=== PATIENT | male | born 1975 | race Caucasian/White ===

== ENCOUNTER 2023-04-01 16:24 | Inpatient (IN) ==
--- NOTE | 2023-04-01 16:55 | Emergency Department Note ---
Impression & Plan Small bowel obstruction ADMIT ED Provider Note HPI: History obtained from patient. The patient is a 48-year-old male who presents emergency department with chief complaint of ongoing abdominal pain, diarrhea. Patient states that he has had the symptoms for about the past week. Patient states he was here on Sunday night, CT imaging at that time showed a nonspecific enteritis and the patient was ultimately discharged home. Patient states that his symptoms have not improved since his discharge, he continues to feel some generalized abdominal pain, states he has had more diarrhea. Patient denies any hematemesis, denies any blood per rectum. On arrival here to the ED the patient is hemodynamically stable, he is in no acute distress on my initial assessment. ROS: - Per HPI Differential Diagnosis: Acute colitis, diverticulitis flare, small bowel obstruction, viral gastroenteritis, acute appendicitis, amongst other potential pathologies. *Outpatient medications and allergy history reviewed. 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: (As interpreted by myself): - An order was placed for continuous cardiac monitoring - Patient was noted to be in sinus rhythm with a rate of 75 EKG: (As interpreted by myself): Rate: 79 Rhythm: Normal sinus rhythm Intervals: Within normal limits ST changes: No ST elevation Time: 1658 Chest x-ray: (As interpreted by myself): Slight elevation of the right hemidiaphragm without otherwise any acute disease Interventions provided in ED: -IV morphine, IV Zofran, IV fluid bolus Medical Decision Making: IV was established and lab work obtained, patient was placed on amusement or recreation card checker. Lab work shows no leukocytosis, hemoglobin is normal, platelet count is normal, CMP shows a mild hyponatremia 135, chloride is low at 95, there is no acute kidney injury, no transaminitis, bilirubin is normal, troponin is negative x 1. Lipase is normal. EKG is interpreted by myself shows normal sinus rhythm without any acute ischemic changes. Chest x-ray shows some mild elevation of the right hemidiaphragm with otherwise no acute disease noted by myself. Stool cultures pending at the time of admission. CT imaging of the abdomen pelvis shows evidence of a high-grade small bowel obstruction in the area of the left abdomen. Patient has not had any vomiting since early this morning, on my reassessment he states he is feeling moderate improvement, therefore we will forego NG tube at this time. General surgery was consulted and the patient was evaluated by the midlevel provider, Miguel Dunlap PA-C, at the bedside, [facility]. Patient was placed for admission in stable condition. Consultants/Discussions held with other healthcare providers: -General Surgery, Miguel Dunlap PA-C -Hospitalist, Dr. Wills Disposition discussion held by myself with: -Patient and significant other at the bedside Diagnosis: 1. Small bowel obstruction, acute 2. Abdominal pain, acute 3. Nausea and vomiting, acute 4. Diarrhea, acute, nonspecific Disposition: Admission Johnnie Cazares DO Emergency Medicine Past Med/Surg History Social History Smoking Status: Never smoker Preferred Language: Greek Feels Safe at Home: Yes Allergies Allergies Allergy/AdvReac Type Severity Reaction Status Date / Time No Known Allergies Allergy Verified 04/01/23 18:29 Home Meds Home Medications Medication Instructions Recorded Confirmed ibuprofen 200 mg tablet 600 mg PO Q6H PRN PAIN/FEVER 04/01/23 04/01/23 Results & Data (ED) Vital Signs Vital Signs - 24 hr 04/01/23 16:25 04/01/23 17:14 04/01/23 18:26 Temperature 36.6 C Temperature Source Temporal Artery Scan Pulse Rate 94 H Pulse Rate [Apical] 78 Pulse Rhythm Pulse Rhythm [Apical] Regular Pulse Strength [Apical] Normal Respiratory Rate 18 12 Respiratory Effort / Characteristics Non-Labored Spontaneous Respiratory Depth Normal Respiratory Pattern Regular Blood Pressure 139/81 Blood Pressure [Right Arm] 147/82 H Blood Pressure Mean 100 Blood Pressure Mean [Right Arm] 103 Blood Pressure Position [Right Arm] Semi-fowlers Pulse Oximetry 95 88 L 95 Oxygen Delivery Method Room Air Nasal Cannula Nasal Cannula Oxygen Flow Rate 0 2 Sepsis Recent Fever Within 48 Hours No Sepsis New/Unexplained Change in Mental Status N/A Sepsis Action Taken by Nursing No Action Required Oxygen Flow Rate - Titration 2 Pulse Oximetry Post Tiitration 95 04/01/23 18:26 04/01/23 18:34 Temperature Temperature Source Pulse Rate 74 70 Pulse Rate [Apical] Pulse Rhythm Regular Pulse Rhythm [Apical] Pulse Strength [Apical] Respiratory Rate 12 Respiratory Effort / Characteristics Respiratory Depth Respiratory Pattern Blood Pressure Blood Pressure [Right Arm] Blood Pressure Mean Blood Pressure Mean [Right Arm] Blood Pressure Position [Right Arm] Pulse Oximetry 95 Oxygen Delivery Method Nasal Cannula Oxygen Flow Rate 2 Sepsis Recent Fever Within 48 Hours Sepsis New/Unexplained Change in Mental Status Sepsis Action Taken by Nursing Oxygen Flow Rate - Titration Pulse Oximetry Post Tiitration Laboratory Data 04/01/23 16:42 04/01/23 16:42 Lab Results 04/01/23 04/01/23 Range/Units 16:42 20:10 WBC 6.97 (4.8-10.8) K/ul RBC 5.04 (4.70-6.10) M/uL Hgb 15.5 (14.0-18.0) g/dl Hct 45.3 (42.0-52.0) % MCV 89.9 (80.0-100.0) fL MCH 30.8 (25.0-34.0) pg MCHC 34.2 (32.0-36.0) g/dL RDW Std Deviation 41.3 (36.4-46.3) fL RDW Coeff of Roberto 12.5 (11.5-14.5) % Plt Count 322 (130-400) K/uL MPV 9.5 (9.4-12.4) fL Immature Gran % (Auto) 0.4 % Neut % (Auto) 53.4 % Lymph % (Auto) 22.1 % [place] % (Auto) 16.8 % Eos % (Auto) 6.3 % Baso % (Auto) 1.0 % Neut # (Auto) 3.72 (1.40-6.50) K/uL Lymph # (Auto) 1.54 (1.20-3.40) K/uL [place] # (Auto) 1.17 H (0.11-0.59) K/uL Eos # (Auto) 0.44 (0.00-0.50) K/uL Baso # (Auto) 0.07 (0.00-0.20) K/uL Immature Gran # (Auto) 0.03 (0.01-0.20) K/uL Dohle Bodies 1+ PT 11.2 (9.0-12.0) Seconds INR 1.0 (0.9-1.1) Sodium 135 L (136-145) mmol/L Potassium 3.8 (3.5-5.1) mmol/L Chloride 95 L (98-107) mmol/L Carbon Dioxide 30 (21-32) mmol/L Anion Gap 10 (3-11) BUN 17 (6-23) mg/dl Creatinine 1.03 (0.6-1.4) mg/dl Est Cr Clr Drug Dosing Not Reportable Est GFR ( Amer) 100.5 ml/min Est GFR (Non-Af Amer) 86.7 ml/min BUN/Creatinine Ratio 16.5 (10-20) Glucose 104 H (70-99(Fasting)) mg/dl Calcium 9.9 (8.6-10.3) mg/dl Total Bilirubin 0.6 (0.2-1.0) mg/dl AST 23 (13-39) U/L ALT 46 (7-52) U/L Alkaline Phosphatase 59 (34-104) U/L Troponin I High Sens 5.8 (0-20) pg/ml Total Protein 7.9 (6.0-8.3) gm/dl Albumin 4.2 (3.4-5.0) gm/dl Globulin 3.7 (2.5-4.0) gm/dl Albumin/Globulin Ratio 1.1 (0.9-2) Lipase 42 (11-82) U/L Stl C. diff Tox B Gene Negative Cdiff Gene (Neg) Administered Medications Discontinued Medications Sodium Chloride (Nss) 1,000 mls @ 999 mls/hr IV .Q1H1M ONE Stop: 04/01/23 17:53 Last Infusion: 04/01/23 18:20 Dose: Infused Documented By: Admin: 04/01/23 16:58 Dose: 999 mls/hr Documented By: EZRA Ioversol (Optiray 320 500ml) 86 ml IV ONCE ONE Stop: 04/01/23 18:18 Last Admin: 04/01/23 18:18 Dose: 86 ml Documented By: ZOHAIB Morphine Sulfate (Morphine Sulfate 4 Mg/Ml 1 Ml Carp\Vial) 4 mg IV NOW STA Stop: 04/01/23 16:54 Last Admin: 04/01/23 17:00 Dose: 4 mg Documented By: EZRA Ondansetron HCl (Ondansetron Inj 2 Mg/Ml 2 Ml Vial) 4 mg IV NOW STA Stop: 04/01/23 16:54 Last Admin: 04/01/23 16:59 Dose: 4 mg Documented By: EZRA Imaging Data Radiologist's Impression: Abdomen/Pelvis CT 04/01/23 16:[address] WITH IV CONTRAST CT DOSE: 1556.05 mGy.cm HISTORY: Acute generalized abdominal pain with nausea and vomiting worsening abd pain, n/v, distension TECHNIQUE: Multiaxial CT images of the abdomen and pelvis were performed following the IV administration of 86 cc of Optiray, A dose lowering technique was utilized adhering to the principles of ALARA. COMPARISON STUDY: 03/29/2023 FINDINGS: Right hemidiaphragmatic elevation redemonstrated. Subsegmental bibasilar densities suggest atelectasis. No pneumatosis or pneumoperitoneum identified. Unremarkable spleen, adrenal glands. Mildly distended gallbladder. The pancreas is unremarkable. Borderline dilation of the pancreatic duct measuring 3-4 mm is unchanged. Unremarkable liver. Patency of the hepatic and portal veins. Unremarkable kidneys. No hydronephrosis. Partially decompressed bladder with wall thickening. Prostate is mildly enlarged. Unremarkable abdominal aorta and IVC. No lymphadenopathy. Trace ascites. Numerous dilated air and fluid-filled loops of small bowel redemonstrated measuring up to approximately 5.6 cm. Several loops of small bowel demonstrates circumferential wall thickening. There is transition narrowing involving a loop of small bowel within the left midabdomen on image 29 series 3 which is generally decompressed distally extending to the terminal ileum. There is mild swirling of the mesentery. Mild interloop edema. Normal appendix. No acute fracture. Tiny fat filled umbilical hernia. IMPRESSION: 1. High-grade small bowel obstruction with transition point within the left abdomen. Several loops of small bowel demonstrate wall thickening with moderate interloop edema and trace ascites. 2. No pneumoperitoneum. 3. Normal appendix. ACT 112: Negative or not required by law. The above report was generated using voice recognition software. It may contain grammatical, syntax or spelling errors. Electronically signed by: Ck Lutz M.D. 04/01/2023 6:52 PM Discharge Plan Visit Data Chief Complaint: Abdominal Pain Stated Complaint: ABDOMINAL PAIN, VOMITING ED Provider: Johnnie Cazares Discharge Problem: Small bowel obstruction Forms Stand Alone Forms: [facility] Prescriptions Prescriptions: No Action ibuprofen 200 mg Tablet 600 mg PO Q6H PRN (Reason: PAIN/FEVER) Referrals Referrals: Armando Sims MD [Primary Care Provider] -
[2023-04-01 16:56] LABS: Hematocrit (blood only) 45.3 % (42.0-52.0); Hemoglobin 15.5 g/dl (14.0-18.0); Mean Corpuscular Hemoglobin 30.8 pg (25.0-34.0); Mean Corpuscular Hgb Conc 34.2 g/dL (32.0-36.0); Mean Corpuscular Volume 89.9 fL (80.0-100.0); Mean Platelet Volume 9.5 fL (9.4-12.4); Platelet Count 322 K/uL (130-400); RDW Coefficient of Variation 12.5 % (11.5-14.5); RDW Standard Deviation 41.3 fL (36.4-46.3); Red Blood Count 5.04 M/uL (4.70-6.10); White Blood Count 6.97 K/ul (4.8-10.8)
[2023-04-01] MEDS: SODIUM CHLORIDE 0.9% 1,000 ML IV ONE (16:58)
[2023-04-01] MEDS: ONDANSETRON INJ 2 MG/ML 2 ML VIAL IV STA (16:59)
[2023-04-01] MEDS: MoRPHine SULFATE 4 MG/ML 1 ML CARP\\VIAL IV STA (17:00)
[2023-04-01 17:10] LABS: Alanine Aminotransferase 46 U/L (7-52); Albumin Globulin Ratio 1.1 (0.9-2); Albumin Level 4.2 gm/dl (3.4-5.0); Alkaline Phosphatase 59 U/L (34-104); Anion Gap 10 (3-11); Aspartate Aminotransferase 23 U/L (13-39); BUN Creatinine Ratio 16.5 (10-20); Bilirubin,Total 0.6 mg/dl (0.2-1.0); Blood Urea Nitrogen 17 mg/dl (6-23); Calcium 9.9 mg/dl (8.6-10.3); Carbon Dioxide 30 mmol/L (21-32); Chloride 95 mmol/L (98-107); Est GFR (African American) 100.5 ml/min; Est GFR (Non-African American) 86.7 ml/min; Globulin 3.7 gm/dl (2.5-4.0); Glucose 104 mg/dl (70-99(Fasting)); Lipase 42 U/L (11-82); Potassium 3.8 mmol/L (3.5-5.1); Sodium 135 mmol/L (136-145); Total Protein 7.9 gm/dl (6.0-8.3)
[2023-04-01 17:17] LABS: Troponin I High Sensitivity 5.8 pg/ml (0-20)
[2023-04-01 17:25] LABS: Basophils # (auto) 0.07 K/uL (0.00-0.20); Dohle Bodies 1+; Eosinophils # (auto) 0.44 K/uL (0.00-0.50); Eosinophils % (auto) 6.3 %; Immature Granulocytes # (auto) 0.03 K/uL (0.01-0.20); Immature Granulocytes % (auto) 0.4 %; Lymphocytes # (auto) 1.54 K/uL (1.20-3.40); Lymphocytes % (auto) 22.1 %; Monocytes # (auto) 1.17 K/uL (0.11-0.59); Monocytes % (auto) 16.8 %; Neutrophils # (auto) 3.72 K/uL (1.40-6.50); Neutrophils % (auto) 53.4 %; Prothrombin Time 11.2 Seconds (9.0-12.0)
[2023-04-01] MEDS: OPTIRAY 320 500ml IV ONE (18:18)
--- NOTE | 2023-04-01 18:54 | CT Scan Report ---
ABDOMEN AND PELVIS CT WITH IV CONTRAST CT DOSE: 1556.05 mGy.cm HISTORY: Acute generalized abdominal pain with nausea and vomiting worsening abd pain, n/v, distensi on TECHNIQUE: Multiaxial CT images of the abdomen and pelvis were performed following the IV administrat ion of 86 cc of Optiray, A dose lowering technique was utilized adhering to the principles of ALARA. COMPARISON STUDY: 03/29/2023 FINDINGS: Right hemidiaphragmatic elevation redemonstrated. Subsegmental bibasilar densities suggest atelectasis. No pneumatosis or pneumoperitoneum identified. Unremarkable spleen, adrenal glands. Mild ly distended gallbladder. The pancreas is unremarkable. Borderline dilation of the pancreatic duct me asuring 3-4 mm is unchanged. Unremarkable liver. Patency of the hepatic and portal veins. Unremarkable kidneys. No hydronephrosis. Partially decompressed bladder with wall thickening. Prostat e is mildly enlarged. Unremarkable abdominal aorta and IVC. No lymphadenopathy. Trace ascites. Numerous dilated air and fluid-filled loops of small bowel redemonstrated measuring up to approximately 5.6 cm. Several loops of small bowel demonstrates circumferential wall thickening. There is transition narrowing involving a loop of small bowel within the left midabdomen on image 29 series 3 which is generally decompressed distally extending to the terminal ileum. There is mild swir ling of the mesentery. Mild interloop edema. Normal appendix. No acute fracture. Tiny fat filled umbi lical hernia. IMPRESSION: 1. High-grade small bowel obstruction with transition point within the left abdomen. Several loops of small bowel demonstrate wall thickening with moderate interloop edema and trace ascites. 2. No pneumoperitoneum. 3. Normal appendix. ACT 112: Negative or not required by law. The above report was generated using voice recognition software. It may contain grammatical, syntax o r spelling errors. Electronically signed by: Ck Lutz M.D. 04/01/2023 6:52 PM
--- NOTE | 2023-04-01 20:56 | Surgery Consultation ---
Date of Consultation April 01, 2023 Assessment & Plan (1) Small bowel obstruction: I discussed with the treating emergency room physician and the patient is being admitted on the hospitalist service. We recommend proceeding as follows: Provide analgesics Provide antiemetics Provide IV fluid for hydration Follow serial labs Follow further results of patient's stool studies and treat accordingly Implement n.p.o. status. I discussed with the patient that as his symptomatology improves consideration be given to advancing his diet beginning with clear liquids. I did discuss with the patient the modality of an NG tube. He does note that his abdominal distention has improved somewhat since arrival to the emergency department and he has not had any emesis in nearly 12 hours and therefore we have elected to withhold this modality at the present time. I did discuss with the patient that if he does have any worsening of his abdominal exam or further emesis the utilization of an NG tube will need to be reconsidered I did discuss with the patient that the cause of his small bowel obstruction is uncertain but may be related to an underlying enteritis, potentially from poorly cooked or mishandled poultry. I did discuss with the patient the rationale for attempting a conservative treatment plan as noted above and additional recommendations be forthcoming based on his clinical course as it unfolds. At the present time I do not feel the patient requires an urgent operation as he is normotensive without tachycardia, fever, leukocytosis, or acute kidney injury. Supervising Physician Co-Signing Physician Notes pnt d/w Eligio Dunlap, labs and imaging reviewed, agree w/ above. 48 y/o male w/ abd pain, n/v/d. ct with dilated bowel and thickened bowel wall. Read as high grade sbo, however on scan air in colon and appears more c/w enteritis. History of Present Illness Reason for Consultation: Small bowel obstruction History of Present Illness This is a 48-year-old male who presented to the emergency department secondary to 7 days of nausea and vomiting along with diarrhea and generalized abdominal pain. Patient notes that when his symptoms began he had some generalized abdominal pain without radiation. As noted above he has had nausea and vomiting along with diarrhea. He notes that his symptoms do improve somewhat after having emesis but this is only short-lived. He denies any bright blood per rectum or melanotic stools. He denies any hematemesis. He denies any fevers, shakes, or chills. He has never had any abdominal surgeries in the past. He does report that prior to his symptoms beginning he may have eaten some poorly cooked/poorly handled chicken and this may have been the culprit of his symptomatology. He notes no close contacts are sick but nobody else ate the chicken in question. The patient does note that since presentation to the emergency department today his abdominal distention appears to be somewhat decreased. He also notes that he has not had any emesis in approximately 12 hours. It is noteworthy to mention that the patient did present to the emergency department on 03/28/2023, approximately 2 to 3 days after the initial onset of his symptoms. During this visit the patient did undergo a CT scan of the abdomen and pelvis which demonstrated thickening of nearly the entirety of the patient's small bowel without any evidence of a small bowel obstruction. It was felt that patient likely had a nonspecific enteritis at that time. Patient also had laboratories at that time her white blood cell count was elevated at 12.8. His hemoglobin, hematocrit, and platelet count were normal. Patient's chemistry profile at that time showed a sodium of 134 with a normal potassium along with a normal BUN and creatinine. His LFTs were not elevated at that time. His lipase was normal at that time. He also underwent a urinalysis that was not indicative of infection at that time. The patient was discharged from the emergency department at this time with conservative measures in place. Due to the ongoing nature of the patient's symptoms he return to the emergency department. Since arrival to the emergency department today the patient had labs and imaging which I independent reviewed. A chest x-ray did not show any evidence of pneumonia. A CT scan of the abdomen pelvis was performed that showed a high- grade small bowel obstruction with a transition point in the left abdomen. Several loops of the small bowel did demonstrate wall thickening. There is no pneumoperitoneum or evidence of appendicitis. Labs today include a CBC her white blood cell count, hemoglobin, hematocrit, and platelet count were normal. Chemistry profile showed sodium was 135 with a normal potassium. BUN and creatinine are also normal and there is no elevation of his LFTs or lipase. Patient has had stool studies sent which are all pending at this time. At the time of my interview the patient was resting comfortably in bed he was in no distress. Concerning past medical history he denies any medical problems Concerning past surgical history he is only had a left biceps tendon repair He does not report any allergies Concerning medications he only utilizes [id number] Motrin on an as needed basis Concerning social history he does not smoke or vape. He only uses alcohol socially and does not consume alcohol on a daily basis Concerning family history patient's mother did suffer from bladder cancer Allergies Allergy/AdvReac Type Severity Reaction Status Date / Time No Known Allergies Allergy Verified 04/01/23 18:29 Home Medications Medication Instructions Recorded Confirmed Type ibuprofen 200 mg tablet 600 mg PO Q6H PRN PAIN/FEVER 04/01/23 04/01/23 History Patient History Social History Smoking Status: Never smoker Hx Substance Use: No Preferred Language: Ukrainian Communication Ability: Effective Six Color Press Operator Required: No Beliefs That Will Affect Care: None Current Living Situation: Alone Other Information That Helps Us Care for You: No Feels Safe at Home: Yes Safety Concerns: Feels Safe At This Time Assistive Devices: None Review of Systems Constitutional: no fever and no chills Ear, Nose, Mouth, Throat: no hearing loss Respiratory: no cough and no dyspnea Cardiovascular: no chest pain Gastrointestinal: as per Subjective / HPI Genitourinary: no dysuria Musculoskeletal: no back pain Integumentary: no rash Neurologic: no localized weakness Physical Exam Constitutional: WD/WN, vitals as above Eyes: no conjunctival abnormality ENMT: Ears: no hearing impairment and no external ear abnormality Mouth: no oropharynx abnormality Neck: trachea midline Respiratory: normal respiratory effort, lungs clear to auscultation Cardiovascular: Rate/Rhythm: regular rate and regular rhythm Vessels: dorsalis pedis pulses present and radial pulses present Gastrointestinal (Abdomen): Abdomen has positive bowel sounds. There is mild to moderate distention noted of the abdomen but his abdomen is not rigid. He does have some generalized tenderness with palpation greatest just to the right of the umbilicus. There is no rebound tenderness or guarding. I do not appreciate any hernias on physical exam. Musculoskeletal: No calf tenderness Skin: no rashes Neurologic: moves all extremities Psychiatric: A+Ox3, euthymic affect Results & Data Vital Signs (Past 12 Hours) Vital Signs Temp Pulse Pulse Resp BP BP Pulse Ox 04/01/23 18:34 70 04/01/23 18:26 74 12 95 04/01/23 18:26 78 12 147/82 H 95 04/01/23 17:14 88 L 04/01/23 16:25 36.6 C 94 H 18 139/81 95 O2 Del Method O2 Flow Rate 04/01/23 18:34 04/01/23 18:26 Nasal Cannula 2 04/01/23 18:26 Nasal Cannula 2 04/01/23 17:14 Nasal Cannula 0 04/01/23 16:25 Room Air PG Care Time/CCT Total # of Minutes Spent Total Time Spent with Patient: Total time spent is greater than 50% in coordination of care (as documented) at patient's floor/unit and/or counseling patient: Coding Level of Care Code 89021 IN/OBS CONSULT LVL 5,80M Diagnoses Small bowel obstruction K56.609
[2023-04-01 21:43] LABS: Adenovirus F 40/41 PCR Not Detected (NotDetected); Astrovirus PCR Not Detected (NotDetected); Campylobacter PCR Not Detected (NotDetected); Cryptosporidium PCR Not Detected (NotDetected); Cyclospora cayetanensis PCR Not Detected (NotDetected); Entamoeba histolytica PCR Not Detected (NotDetected); Enteroaggregative E.coli(EAEC) Not Detected (NotDetected); Enteropathogenic E.coli (EPEC) Not Detected (NotDetected); Enterotoxigenic E.coli (ETEC) Not Detected (NotDetected); Giardia lamblia PCR Not Detected (NotDetected); Norovirus GI/GII PCR Not Detected (NotDetected); Plesiomonas shigelloides PCR Not Detected (NotDetected); Rotavirus A PCR Not Detected (NotDetected); Salmonella PCR Not Detected (NotDetected); Sapovirus PCR Not Detected (NotDetected); Shiga-like Toxin E.coli (STEC) Not Detected (NotDetected); Shigella/Enteroinvasive E.coli Not Detected (NotDetected); Vibrio cholerae PCR Not Detected (NotDetected); Vibrio species PCR Not Detected (NotDetected); Yersinia enterocolitica PCR Not Detected (NotDetected)
[2023-04-01] MEDS ORDERED: MoRPHine SULFATE 4 MG/ML 1 ML CARP\\VIAL IV PRN (22:38)
[2023-04-01 22:59] LABS: Magnesium 2.1 mg/dl (1.7-2.4); Phosphorus 3.5 mg/dl (2.5-4.9)
[2023-04-01] MEDS: LACTATED RINGER'S 1,000 ML IV SCH (23:57)
--- NOTE | 2023-04-02 01:17 | History & Physical Report ---
Date of Service April 01, 2023 Assessment & Plan (1) Small bowel obstruction: Plan: 48yo male with no significant past medical history, no abdominal surgeries presenting with 7 days of nausea, vomiting, diarrhea. Now with worsening abdominal pain and distention. Found to have high grade SBO -Admit to medical -Keep NPO -Pain control with morphine PRN -Zofran PRN nausea -IVF with LR at 125mL/hr x 2 liters -General Surgery consultation appreciated -Repeat chemistry in AM F/E/N - LR at 125mL/hr x 2L, electrolytes WNL, NPO for now Ppx - Low risk for DVT Code - Full Dispo - Admit to medical Admission and Anticipated Discharge Date Admission Date: April 01, 2023 History of Present Illness Chief Complaint: abdominal pain Primary Care Provider: Armando Sims MD Jaime Brink is a 48yo male with no significant past medical or surgical history presenting with abdominal pain, nausea/vomiting and diarrhea. Patient's symptoms began 7 days ago possibly after he ate some improperly stored chicken. He has had diffuse, generalized abdominal pain, nausea with multiple episodes of non-bloody/non-bilious vomiting as well as non-bloody diarrhea. He has had worsening abdominal pain and distention. He has had some chills but no documented fever. No chest pain, palpitations, cough or shortness of breath. No additional complaints at this time. In the ER he is afebrile, HD stable, NAD ER Course: NSS x 1L Zofran 4mg IV Morphine 4mg IV Allergies Allergy/AdvReac Type Severity Reaction Status Date / Time No Known Allergies Allergy Verified 04/01/23 18:29 Home Medications Medication Instructions Recorded Confirmed Type ibuprofen 200 mg tablet 600 mg PO Q6H PRN PAIN/FEVER 04/01/23 04/01/23 History Past Med/Surg History Medical History (Updated 04/02/23 @ 01:10 by Chante Wills DO) No significant past medical history Surgical History (Updated 04/02/23 @ 01:11 by Chante Wills DO) No significant past surgical history Family History (Updated 04/02/23 @ 01:10 by Chante Wills DO) Other Cancer Social History Smoking Status: Never smoker Hx Substance Use: No Preferred Language: Bangladeshi Communication Ability: Effective Fly Winder Required: No Beliefs That Will Affect Care: None Current Living Situation: Alone Other Information That Helps Us Care for You: No Feels Safe at Home: Yes Safety Concerns: Feels Safe At This Time Assistive Devices: None Review of Systems Review of Systems: All systems reviewed & are unremarkable except as noted in HPI & below Physical Exam Physical Exam: General: patient resting comfortably, NAD, non-toxic in appearance, AA&O x 4 Skin: warm, dry, intact, no rashes or lesions HEENT: NC/AT, PERRL, EOMI, anicteric sclera, conjunctiva without injection, external ear normal to inspection and nontender, nares patent, moist mucus membranes, dentition intact, no oropharyngeal lesions, neck supple, trachea midline, no LAD, no thyromegaly, no JVD Heart: +S1/S2, regular, no m/r/g Lungs: equal air entry bilaterally, no rales/rhonchi/wheezes Abd: +BS, soft, moderately distended, tender to palpation in the mid abdomen w ithout rebound or guarding, no masses/organomegaly/ascites Ext: warm, 2+ pulses in UE/LE bilaterally, no clubbing/cyanosis or edema Neuro: nonfocal, patient AA&O x 4, speech intact, no facial droop, moving all extremities on command with equal strength 5/5 Results & Data Results & Data Vital Signs (Past 12 Hours) Vital Signs Temp Pulse Pulse Pulse Resp BP BP 04/01/23 22:43 36.5 C 69 18 137/75 04/01/23 22:41 36.5 C 69 18 137/75 04/01/23 18:34 70 04/01/23 18:26 74 12 04/01/23 18:26 78 12 147/82 H 04/01/23 17:14 04/01/23 16:25 36.6 C 94 H 18 139/81 Pulse Ox O2 Del Method O2 Flow Rate 04/01/23 22:43 93 Room Air 04/01/23 22:41 93 Room Air 04/01/23 18:34 04/01/23 18:26 95 Nasal Cannula 2 04/01/23 18:26 95 Nasal Cannula 2 04/01/23 17:14 88 L Nasal Cannula 0 04/01/23 16:25 95 Room Air Laboratory Results Laboratory Results WBC 6.97 K/ul (4.8-10.8) 04/01/23 16:42 RBC 5.04 M/uL (4.70-6.10) 04/01/23 16:42 Hgb 15.5 g/dl (14.0-18.0) 04/01/23 16:42 Hct 45.3 % (42.0-52.0) 04/01/23 16:42 MCV 89.9 fL (80.0-100.0) 04/01/23 16:42 MCH 30.8 pg (25.0-34.0) 04/01/23 16:42 MCHC 34.2 g/dL (32.0-36.0) 04/01/23 16:42 RDW Std Deviation 41.3 fL (36.4-46.3) 04/01/23 16:42 RDW Coeff of Roberto 12.5 % (11.5-14.5) 04/01/23 16:42 Plt Count 322 K/uL (130-400) 04/01/23 16:42 MPV 9.5 fL (9.4-12.4) 04/01/23 16:42 Immature Gran % (Auto) 0.4 % 04/01/23 16:42 Neut % (Auto) 53.4 % 04/01/23 16:42 Lymph % (Auto) 22.1 % 04/01/23 16:42 [place] % (Auto) 16.8 % 04/01/23 16:42 Eos % (Auto) 6.3 % 04/01/23 16:42 Baso % (Auto) 1.0 % 04/01/23 16:42 Neut # (Auto) 3.72 K/uL (1.40-6.50) 04/01/23 16:42 Lymph # (Auto) 1.54 K/uL (1.20-3.40) 04/01/23 16:42 [place] # (Auto) 1.17 K/uL (0.11-0.59) H 04/01/23 16:42 Eos # (Auto) 0.44 K/uL (0.00-0.50) 04/01/23 16:42 Baso # (Auto) 0.07 K/uL (0.00-0.20) 04/01/23 16:42 Immature Gran # (Auto) 0.03 K/uL (0.01-0.20) 04/01/23 16:42 Dohle Bodies 1+ 04/01/23 16:42 PT 11.2 Seconds (9.0-12.0) 04/01/23 16:42 INR 1.0 (0.9-1.1) 04/01/23 16:42 Sodium 135 mmol/L (136-145) L 04/01/23 16:42 Potassium 3.8 mmol/L (3.5-5.1) 04/01/23 16:42 Chloride 95 mmol/L (98-107) L 04/01/23 16:42 Carbon Dioxide 30 mmol/L (21-32) 04/01/23 16:42 Anion Gap 10 (3-11) 04/01/23 16:42 BUN 17 mg/dl (6-23) 04/01/23 16:42 Creatinine 1.03 mg/dl (0.6-1.4) 04/01/23 16:42 Est Cr Clr Drug Dosing Not Reportable 04/01/23 16:42 Est GFR ( Amer) 100.5 ml/min 04/01/23 16:42 Est GFR (Non-Af Amer) 86.7 ml/min 04/01/23 16:42 BUN/Creatinine Ratio 16.5 (10-20) 04/01/23 16:42 Glucose 104 mg/dl (70-99(Fasting)) H 04/01/23 16:42 Calcium 9.9 mg/dl (8.6-10.3) 04/01/23 16:42 Phosphorus 3.5 mg/dl (2.5-4.9) 04/01/23 16:42 Magnesium 2.1 mg/dl (1.7-2.4) 04/01/23 16:42 Total Bilirubin 0.6 mg/dl (0.2-1.0) 04/01/23 16:42 AST 23 U/L (13-39) 04/01/23 16:42 ALT 46 U/L (7-52) 04/01/23 16:42 Alkaline Phosphatase 59 U/L (34-104) 04/01/23 16:42 Troponin I High Sens 5.8 pg/ml (0-20) 04/01/23 16:42 Total Protein 7.9 gm/dl (6.0-8.3) 04/01/23 16:42 Albumin 4.2 gm/dl (3.4-5.0) 04/01/23 16:42 Globulin 3.7 gm/dl (2.5-4.0) 04/01/23 16:42 Albumin/Globulin Ratio 1.1 (0.9-2) 04/01/23 16:42 Lipase 42 U/L (11-82) 04/01/23 16:42 Stl C. cayetanensis PCR Not Detected (NotDetected) 04/01/23 20:10 Stool Rotavirus A PCR Not Detected (NotDetected) 04/01/23 20:10 Stl Adenov F 40/41 PCR Not Detected (NotDetected) 04/01/23 20:10 Stool Astrovirus (PCR) Not Detected (NotDetected) 04/01/23 20:10 Stool Campylobacter PCR Not Detected (NotDetected) 04/01/23 20:10 Stl C. diff Tox B Gene Negative Cdiff Gene (Neg) 04/01/23 20:10 Stool Cryptosporidium PCR Not Detected (NotDetected) 04/01/23 20:10 Stl E.coli Shiga Tox PCR Not Detected (NotDetected) 04/01/23 20:10 Stl Enterotoxigenic E PCR Not Detected (NotDetected) 04/01/23 20:10 Stool EPEC (PCR) Not Detected (NotDetected) 04/01/23 20:10 Stool EAEC (PCR) Not Detected (NotDetected) 04/01/23 20:10 Stl E. histolytica PCR Not Detected (NotDetected) 04/01/23 20:10 Stool Giardia Lamblia PCR Not Detected (NotDetected) 04/01/23 20:10 Stool Salmonella PCR Not Detected (NotDetected) 04/01/23 20:10 Stool Sapovirus (PCR) Not Detected (NotDetected) 04/01/23 20:10 Stl P. shigelloides PCR Not Detected (NotDetected) 04/01/23 20:10 Stl Shigella/EIEC PCR Not Detected (NotDetected) 04/01/23 20:10 St Y.enterocolitica PCR Not Detected (NotDetected) 04/01/23 20:10 Stool Vibrio (PCR) Not Detected (NotDetected) 04/01/23 20:10 Stl Vibrio cholerae PCR Not Detected (NotDetected) 04/01/23 20:10 Stl Norovirus GI/GII PCR Not Detected (NotDetected) 04/01/23 20:10 Impressions Abdomen/Pelvis CT 04/01/23 16:[address] WITH IV CONTRAST CT DOSE: 1556.05 mGy.cm HISTORY: Acute generalized abdominal pain with nausea and vomiting worsening abd pain, n/v, distension TECHNIQUE: Multiaxial CT images of the abdomen and pelvis were performed following the IV administration of 86 cc of Optiray, A dose lowering technique was utilized adhering to the principles of ALARA. COMPARISON STUDY: 03/29/2023 FINDINGS: Right hemidiaphragmatic elevation redemonstrated. Subsegmental bibasilar densities suggest atelectasis. No pneumatosis or pneumoperitoneum identified. Unremarkable spleen, adrenal glands. Mildly distended gallbladder. The pancreas is unremarkable. Borderline dilation of the pancreatic duct measuring 3-4 mm is unchanged. Unremarkable liver. Patency of the hepatic and portal veins. Unremarkable kidneys. No hydronephrosis. Partially decompressed bladder with wall thickening. Prostate is mildly enlarged. Unremarkable abdominal aorta and IVC. No lymphadenopathy. Trace ascites. Numerous dilated air and fluid-filled loops of small bowel redemonstrated measuring up to approximately 5.6 cm. Several loops of small bowel demonstrates circumferential wall thickening. There is transition narrowing involving a loop of small bowel within the left midabdomen on image 29 series 3 which is generally decompressed distally extending to the terminal ileum. There is mild swirling of the mesentery. Mild interloop edema. Normal appendix. No acute fracture. Tiny fat filled umbilical hernia. IMPRESSION: 1. High-grade small bowel obstruction with transition point within the left abdomen. Several loops of small bowel demonstrate wall thickening with moderate interloop edema and trace ascites. 2. No pneumoperitoneum. 3. Normal appendix. ACT 112: Negative or not required by law. The above report was generated using voice recognition software. It may contain grammatical, syntax or spelling errors. Electronically signed by: Ck Lutz M.D. 04/01/2023 6:52 PM Diagnostic Findings CXR - per my interpretation - mild elevation of right hemidiaphragm, no consolidation, pneumothorax or edema ECG Additional Comments: Per my interpretation study shows NSR at 79bpm, nomral axis, HE=540, QRS=90, TMp=304, some non-specific ST changes Code Status & VTE Plan VTE Prophylaxis Plan VTE Prophylaxis will be ordered: Yes PG Care Time/CCT Total # of Minutes Spent Total Time Spent with Patient: Total time spent is greater than 50% in coordination of care (as documented) at patient's floor/unit and/or counseling patient: Coding Level of Care Code 54827 INT INP/OBS CARE MIN Diagnoses Small bowel obstruction K56.609
[2023-04-02 05:57] LABS: Mean Corpuscular Hemoglobin 30.5 pg (25.0-34.0); Mean Corpuscular Hgb Conc 33.3 g/dL (32.0-36.0); Mean Corpuscular Volume 91.5 fL (80.0-100.0); Mean Platelet Volume 9.5 fL (9.4-12.4); Platelet Count 270 K/uL (130-400); RDW Coefficient of Variation 12.7 % (11.5-14.5); RDW Standard Deviation 42.2 fL (36.4-46.3); Red Blood Count 4.26 M/uL (4.70-6.10); White Blood Count 5.99 K/ul (4.8-10.8)
[2023-04-02 06:12] LABS: BUN Creatinine Ratio 15.6 (10-20); Calcium 8.5 mg/dl (8.6-10.3); Creatinine Clr Calc Pharmacy 110.7 ml/min; Est GFR (African American) 109.4 ml/min; Est GFR (Non-African American) 94.4 ml/min; Potassium 3.8 mmol/L (3.5-5.1)
--- NOTE | 2023-04-02 07:07 | XRay Report ---
XR chest 1V portable HISTORY: Shortness of breath. COMPARISON: Abdomen and pelvis CT 04/01/2023. FINDINGS: Elevated right hemidiaphragm with right basilar linear densities consistent with subsegment al atelectasis. This remains unchanged. No pneumothorax. No pleural effusions. The heart is normal in size. There are few left basilar linear densities favoring subsegmental atelectasis. The upper lung zones are clear. No evidence for pulmonary edema. No acute fractures. IMPRESSION: Bibasilar linear densities which favor subsegmental atelectasis. Otherwise, no acute process within t he chest. ACT 112: Negative or not required by law. Electronically signed by: Johnathan Hanson M.D. 04/02/2023 7:05 AM
--- NOTE | 2023-04-02 08:09 | Hospitalist Progress Note ---
Date of Service April 02, 2023 Assessment & Plan (1) Small bowel obstruction: Plan: 48yo male with no significant past medical history, no abdominal surgeries presenting with 7 days of nausea, vomiting, diarrhea. Now with worsening abdominal pain and distention. Found to have high grade SBO -continue NPO -Pain control with morphine PRN -Zofran PRN nausea -IVF with LR at 125mL/hr x 2 liters -General Surgery consultation and Gastroentereolgy bryant, surgery feels less likley sbo, may consider gastrograffin SbFT Code - Full Admission and Anticipated Discharge Date Admission Date: April 01, 2023 Subjective pt with liquid bowel movements, still tympanitic, tender no guarding no acute abdomen Physical Exam Physical Exam: Patient looks to be in mild distress painful with movement Abdomen is with hypoactive bowel sounds he is tympanitic he is tender to exam but not acute abdomen Results & Data Results & Data Vital Signs (Past 12 Hours) Vital Signs Temp Pulse Resp BP Pulse Ox O2 Del Method 04/02/23 07:13 97.9 F 65 16 133/80 92 Room Air 04/01/23 22:43 97.7 F 69 18 137/75 93 Room Air 04/01/23 22:41 97.7 F 69 18 137/75 93 Room Air Laboratory Results Reviewed CBC Reviewed chemistry PG Care Time/CCT Total # of Minutes Spent Total Time Spent with Patient: Total time spent is greater than 50% in coordination of care (as documented) at patient's floor/unit and/or counseling patient: Coding Level of Care Code 88789 SUB INP/OBS CARE 2/35MIN Diagnoses Small bowel obstruction K56.609
--- NOTE | 2023-04-02 08:48 | Surgery Progress Note ---
Date of Service April 02, 2023 Assessment & Plan (1) Small bowel obstruction: Plan: Patient reports abd pain 5/10 umbilical area No n/v this AM Denies CP and flatus Currently NPO, will remain NPO until better bowel function Encouraged ambulation WBC wnl , VSS Continue IV fluids for hydration and conservative treatment Will continue to monitor Admission and Anticipated Discharge Date Admission Date: April 01, 2023 Supervising Physician Co-Signing Physician Notes pnt s&e, labs and imaging reviewed, agree with above. 48 y/o male with 1 week h/o abd pain and n/v/d, ct last night suggest sbo. had loose stool this morning. wants liqiuds. still bloated. on exam afvss, abd soft, diffusely but mildly ttp, no guarding. ct with dilated bowel with focal narrowing but colon and distal bowel not decompressed, some thickening of bowel wall in areas. unlikely sbo, more likely enteritis, possible IBD. start clears, may need repeat study with oral contrast. Subjective Patient reports abd pain 5/10 umbilical area No n/v this AM Denies CP and flatus Currently NPO Review of Systems Constitutional: no fever and no chills Ear, Nose, Mouth, Throat: no hearing loss Respiratory: no cough Cardiovascular: no chest pain Gastrointestinal: + abdominal pain; no nausea and no vomit ing Musculoskeletal: no muscle weakness Integumentary: no rash Neurologic: no memory loss Psychiatric: no confusion Physical Exam Physical Exam: alert awake pleasant Constitutional: well developed, cooperative and comfortable; no acute distress ENMT: external ear and nose normal, oropharynx normal Neck: trachea midline, no thyromegaly Respiratory: normal respiratory effort and able to speak in complete sentences; no respiratory distress Cardiovascular: Rate/Rhythm: regular rate Gastrointestinal (Abdomen): Inspection/Auscultation: abdomen not distended Percussion/Palpation: + abdomen tender and abdomen soft Musculoskeletal: no cyanosis or clubbing, extremities motor strength 5/5 Skin: no rashes, warm and dry Neurologic: awake; not confused Results & Data Vital Signs (Past 12 Hours) Vital Signs Temp Pulse Resp BP Pulse Ox O2 Del Method 04/02/23 07:13 97.9 F 65 16 133/80 92 Room Air 04/01/23 22:43 97.7 F 69 18 137/75 93 Room Air 04/01/23 22:41 97.7 F 69 18 137/75 93 Room Air Results Complete Blood Count Results: RBC 4.26 M/uL (4.70-6.10) L 04/02/23 WBC 5.99 K/ul (4.8-10.8) 04/02/23 Hgb 13.0 g/dl (14.0-18.0) L 04/02/23 Hct 39.0 % (42.0-52.0) L 04/02/23 Plt Count 270 K/uL (130-400) 04/02/23 Results CMP Results: Na 138 mmol/L (136-145) 04/02/23 K 3.8 mmol/L (3.5-5.1) 04/02/23 Cl 101 mmol/L (98-107) 04/02/23 CO2 29 mmol/L (21-32) 04/02/23 Anion Gap 8 (3-11) 04/02/23 BUN 15 mg/dl (6-23) 04/02/23 Creatinine 0.96 mg/dl (0.6-1.4) 04/02/23 Estimated GFR ( Amer) 109.4 ml/min 04/02/23 Estimated GFR (Non-Af Amer) 94.4 ml/min 04/02/23 BUN/Creatinine Ratio 15.6 (10-20) 04/02/23 Glu 75 mg/dl (70-99(Fasting)) 04/02/23 Ca 8.5 mg/dl (8.6-10.3) L 04/02/23 Phosphorus Level 3.5 mg/dl (2.5-4.9) 04/01/23 Total Bilirubin 0.6 mg/dl (0.2-1.0) 04/01/23 AST 23 U/L (13-39) 04/01/23 ALT 46 U/L (7-52) 04/01/23 Alkaline Phosphatase 59 U/L (34-104) 04/01/23 TP 7.9 gm/dl (6.0-8.3) 04/01/23 Albumin 4.2 gm/dl (3.4-5.0) 04/01/23 Globulin 3.7 gm/dl (2.5-4.0) 04/01/23 Albumin/Globulin Ratio 1.1 (0.9-2) 04/01/23 PG Care Time/CCT Total # of Minutes Spent Total Time Spent with Patient: Total time spent is greater than 50% in coordination of care (as documented) at patient's floor/unit and/or counseling patient: Coding Level of Care Code 50363 SUB INP/OBS CARE 03/22MIN Diagnoses Small bowel obstruction K56.609
--- NOTE | 2023-04-02 12:42 | Electrocardiogram Report ---
Test Reason : Blood Pressure : / mmHG Vent. Rate : 079 BPM Atrial Rate : 079 BPM P-R Int : 156 ms QRS Dur : 090 ms QT Int : 398 ms P-R-T Axes : 047 -21 024 degrees QTc Int : 456 ms Normal sinus rhythm T-wave inversion in Anterior leads , consider ischemia Abnormal ECG No previous ECGs available Confirmed by Neymar Handy ([id number]) on 04/02/2023 12:41:41 PM Referred By: REFERRED SELF Confirmed By:Neymar Handy
[2023-04-02] MEDS: ONDANSETRON INJ 2 MG/ML 2 ML VIAL IV PRN (16:19)
[2023-04-02] MEDS: MoRPHine SULFATE 2 MG/ML CARP IV PRN (20:50)
[2023-04-02] MEDS: PROMETHAZINE HCL 12.5 MG in SODIUM CHLORIDE 0.9% 50 ML IV PRN (21:12)
[2023-04-02] MEDS: ACETAMINOPHEN 1,000 MG/100 ML VIAL IV SCH (23:11)
[2023-04-02] MEDS: FAMOTIDINE 20 MG in SYRINGE 3 ML IV ONE (23:11)
--- NOTE | 2023-04-03 08:19 | Surgery Progress Note ---
Date of Service April 03, 2023 Assessment & Plan (1) Small bowel obstruction: Plan: Reports his IV fluids were stopped and his diet was advanced to liquids yesterday afternoon Patient reports he had diarrhea last night with associated nausea without vomiting After increase in nausea and abd pain he was then made NPO Reports 5/10 abd pain this am Currently no nausea Passing flatus VSS, WBC wnl Ordered KUB for this AM If persistent SBO may need to restart IV fluids for hydration Will monitor Admission and Anticipated Discharge Date Admission Date: April 01, 2023 Supervising Physician Co-Signing Physician Notes pnt s&e, labs and imaging reviewed, agree with above. enteritis vs less likely sbo, continues to have bm's and passed a lot of flatus last night. Feels less bloated. Some nausea overnight, but improved today and tolerating clears. abd soft, less distended, NT. kub with dilated bowel but air in colon, slightly improved. will continue clears, advance to fulls and low fiber tomorrow if tolerates Subjective Patient reports he had diarrhea last night with associated nausea without vomiting Reports his IV fluids were stopped and his diet was advanced to liquids last night After increase in nausea and abd pain he was then made NPO again. Reports 5/10 abd pain this am Currently no nausea Passing flatus Review of Systems Constitutional: no fever and no chills Ear, Nose, Mouth, Throat: no hearing loss Respiratory: no cough Cardiovascular: no chest pain Gastrointestinal: + abdominal pain; no nausea and no vomit ing Genitourinary: no dysuria Musculoskeletal: no muscle weakness Integumentary: no rash Neurologic: no memory loss Psychiatric: no confusion Physical Exam Physical Exam: alert awake pleasant Constitutional: well developed, cooperative and comfortable; no acute distress ENMT: external ear and nose normal, oropharynx normal Neck: trachea midline, no thyromegaly Respiratory: normal respiratory effort and able to speak in complete sentences; no respiratory distress Cardiovascular: Rate/Rhythm: regular rate Gastrointestinal (Abdomen): Inspection/Auscultation: + abdomen distended Percussion/Palpation: + abdomen tender and abdomen soft Musculoskeletal: no cyanosis or clubbing, extremities motor strength 5/5 Skin: no rashes, warm and dry Neurologic: awake; not confused Results & Data Vital Signs (Past 12 Hours) Vital Signs Temp Pulse Resp BP Pulse Ox O2 Del Method 04/03/23 07:55 97.9 F 65 16 132/76 94 Room Air 04/02/23 20:50 Room Air Results Complete Blood Count Results: RBC 4.38 M/uL (4.70-6.10) L 04/03/23 WBC 6.45 K/ul (4.8-10.8) 04/03/23 Hgb 13.3 g/dl (14.0-18.0) L 04/03/23 Hct 39.4 % (42.0-52.0) L 04/03/23 Plt Count 292 K/uL (130-400) 04/03/23 Results CMP Results: Na 135 mmol/L (136-145) L 04/03/23 K 3.9 mmol/L (3.5-5.1) 04/03/23 Cl 104 mmol/L (98-107) 04/03/23 CO2 24 mmol/L (21-32) 04/03/23 Anion Gap 7 (3-11) 04/03/23 BUN 8 mg/dl (6-23) 04/03/23 Creatinine 0.87 mg/dl (0.6-1.4) 04/03/23 Estimated GFR ( Amer) 120.0 ml/min 04/03/23 Estimated GFR (Non-Af Amer) 103.5 ml/min 04/03/23 BUN/Creatinine Ratio 9.2 (10-20) L 04/03/23 Glu 104 mg/dl (70-99(Fasting)) H 04/03/23 Ca 8.6 mg/dl (8.6-10.3) 04/03/23 Phosphorus Level 3.5 mg/dl (2.5-4.9) 04/01/23 Total Bilirubin 0.6 mg/dl (0.2-1.0) 04/01/23 AST 23 U/L (13-39) 04/01/23 ALT 46 U/L (7-52) 04/01/23 Alkaline Phosphatase 59 U/L (34-104) 04/01/23 TP 7.9 gm/dl (6.0-8.3) 04/01/23 Albumin 4.2 gm/dl (3.4-5.0) 04/01/23 Globulin 3.7 gm/dl (2.5-4.0) 04/01/23 Albumin/Globulin Ratio 1.1 (0.9-2) 04/01/23 PG Care Time/CCT Total # of Minutes Spent Total Time Spent with Patient: Total time spent is greater than 50% in coordination of care (as documented) at patient's floor/unit and/or counseling patient: Coding Level of Care Code 22838 SUB INP/OBS CARE 2/35MIN Diagnoses Small bowel obstruction K56.609
[2023-04-03 08:53] LABS: Hematocrit (blood only) 39.4 % (42.0-52.0); Hemoglobin 13.3 g/dl (14.0-18.0); Mean Corpuscular Hemoglobin 30.4 pg (25.0-34.0); Mean Corpuscular Hgb Conc 33.8 g/dL (32.0-36.0); Mean Platelet Volume 9.2 fL (9.4-12.4); Platelet Count 292 K/uL (130-400); RDW Coefficient of Variation 12.7 % (11.5-14.5); RDW Standard Deviation 41.9 fL (36.4-46.3); Red Blood Count 4.38 M/uL (4.70-6.10); White Blood Count 6.45 K/ul (4.8-10.8)
[2023-04-03 09:10] LABS: BUN Creatinine Ratio 9.2 (10-20); Calcium 8.6 mg/dl (8.6-10.3); Creatinine Clr Calc Pharmacy 122.2 ml/min; Est GFR (Non-African American) 103.5 ml/min; Potassium 3.9 mmol/L (3.5-5.1)
--- NOTE | 2023-04-03 09:17 | XRay Report ---
KUB CLINICAL HISTORY: Small bowel obstruction. COMPARISON STUDY: CT of the abdomen and pelvis April 01, 2023. FINDINGS: Multiple loops of moderately dilated small bowel measure up to 5.5 cm in caliber. Small bow el dilatation has improved since CT of April 01, 2023. No radiographic evidence for free air althou gh sensitivity diminished on supine exam. IMPRESSION: Findings suggestive of a persistent, but mildly improved, small bowel obstruction. ACT 112: Negative or not required by law. Electronically signed by: Alen Buck M.D. 04/03/2023 9:15 AM
--- NOTE | 2023-04-03 10:19 | Gastrointestinal Consultation ---
Date of Consultation April 03, 2023 Assessment & Plan (1) Small bowel obstruction: Discussed case with Dr. Modi who advised on plan. - surgery following. - recommend supportive care. - would recommend colonoscopy as an outpatient once recovered. Supervising Physician Co-Signing Physician Notes I saw the patient and agree with the findings as documented by ROBERTO Lucero History of Present Illness Reason for Consultation: ? SBO Requesting Physician: Pritesh Rod MD Attending Physician: Pritesh Rod MD History of Present Illness 48 year old male with no significant past medical history, no history of abdominal surgeries who presented to the ED with 7 days of nausea, vomiting, and diarrhea. He questions if he possibly ate bad chicken that may have lead to him having issues. He had been seen in the ED last week and had imaging suggestive of enteritis. He went home and had progression of symptoms without improvement so he returned the ED. He had imaging consistent with a high grade SBO with moderate edema and trace ascites. Surgery had seen the patient and felt like this may be more of an enteritis than an obstruction. he has had several bowel movements during hsi admission that he tells me are all diarrhea. stool biofire was unremarkable. He tells me that he was feeling somewhat better yesterday but was unable to tolerate clear liquids as he developed worsening diarrhea. no further nausea or vomiting. rest of GI ros unremarkable. He has never had an EGD or colonoscopy. His KUB this morning shown mild improvement in SBO. He does tell me he had an aunt with history of crohn's disease. Allergies Allergy/AdvReac Type Severity Reaction Status Date / Time No Known Allergies Allergy Verified 04/01/23 18:29 Home Medications Medication Instructions Recorded Confirmed Type ibuprofen 200 mg tablet 600 mg PO Q6H PRN PAIN/FEVER 04/01/23 04/01/23 History Patient History Medical History (Updated 04/02/23 @ 01:10 by Chante Wills DO) No significant past medical history Surgical History (Updated 04/02/23 @ 01:11 by Chante Wills DO) No significant past surgical history Family History (Updated 04/02/23 @ 01:10 by Chante Wills DO) Other Cancer Social History Smoking Status: Never smoker Hx Substance Use: No Preferred Language: [place]erratian Communication Ability: Effective Service Technician Copier Required: No Beliefs That Will Affect Care: None Current Living Situation: Alone Other Information That Helps Us Care for You: No Feels Safe at Home: Yes Safety Concerns: Feels Safe At This Time Assistive Devices: None Review of Systems Review of Systems: All systems reviewed & are unremarkable except as noted in HPI & below Physical Exam Constitutional: WD/WN, vitals as above Respiratory: normal respiratory effort, lungs clear to auscultation Cardiovascular: RRR, no murmur, no edema Gastrointestinal (Abdomen): abdomen distended. hypoactive bowel sounds. soft. mild diffuse tenderness. no guarding. Skin: no rashes, warm and dry Psychiatric: Orientation: alert and oriented x 3 Affect: euthymic affect Results & Data Vital Signs (Past 12 Hours) Vital Signs Temp Pulse Resp BP Pulse Ox O2 Del Method 04/03/23 08:20 Room Air 04/03/23 07:55 97.9 F 65 16 132/76 94 Room Air PG Care Time/CCT Total # of Minutes Spent Total Time Spent with Patient: Total time spent is greater than 50% in coordination of care (as documented) at patient's floor/unit and/or counseling patient: Coding Level of Care Code 50821 IN/OBS CONSULT LVL 2,35M Diagnoses Small bowel obstruction K56.609 Time Spent (min) 40
--- NOTE | 2023-04-03 17:57 | Hospitalist Progress Note ---
Date of Service April 03, 2023 Assessment & Plan (1) Small bowel obstruction: Plan: 48yo male with no significant past medical history, no abdominal surgeries presenting with 7 days of nausea, vomiting, diarrhea. Now with worsening abdominal pain and distention. Found to have high grade SBO -Patient with improvement on this calendar day tolerating advancement of diet still with some tympany and distention -Pain control with morphine PRN -Zofran PRN nausea -IV fluid has been held we will continue to watch to see if he can sustain oral intake well without needing IV fluids -General Surgery consultation and Gastroentereolgy bryant, surgery feels less likley sbo, will need outpatient colonoscopy with gastroenterology at some point in time. Mild anemia noted likely due to dilution mild hyponatremia noted likely due to intravenous fluids Code - Full Admission and Anticipated Discharge Date Admission Date: April 01, 2023 Subjective Patient reports in the evening of 04/02 did have bloating distention nausea and pain in his abdomen to the point where he required some morphine. Subsequently he has had increased flatus and some liquid bowel movements some resolution of distention and certainly resolution of pain. Today on 04/03 she is tolerating liquid diet Physical Exam Physical Exam: Patient is in less distress still has some distention and tympany but much less than 1 day prior Hypoactive bowel sounds no acute abdomen is noted on exam Results & Data Results & Data Vital Signs (Past 12 Hours) Vital Signs Temp Pulse Resp BP Pulse Ox O2 Del Method 04/03/23 14:02 97.7 F 65 16 127/78 93 Room Air 04/03/23 08:20 Room Air 04/03/23 07:55 97.9 F 65 16 132/76 94 Room Air Laboratory Results Reviewed CBC reviewed chemistry PG Care Time/CCT Total # of Minutes Spent Total Time Spent with Patient: Total time spent is greater than 50% in coordination of care (as documented) at patient's floor/unit and/or counseling patient: Coding Level of Care Code 61125 SUB INP/OBS CARE Diagnoses Small bowel obstruction K56.609
[2023-04-04 07:31] LABS: Hematocrit (blood only) 41.2 % (42.0-52.0); Hemoglobin 14.2 g/dl (14.0-18.0); Mean Corpuscular Hemoglobin 30.8 pg (25.0-34.0); Mean Corpuscular Hgb Conc 34.5 g/dL (32.0-36.0); Mean Corpuscular Volume 89.4 fL (80.0-100.0); Mean Platelet Volume 9.2 fL (9.4-12.4); Platelet Count 333 K/uL (130-400); RDW Coefficient of Variation 12.7 % (11.5-14.5); Red Blood Count 4.61 M/uL (4.70-6.10); White Blood Count 7.31 K/ul (4.8-10.8)
[2023-04-04 07:47] LABS: BUN Creatinine Ratio 7.8 (10-20); Calcium 8.9 mg/dl (8.6-10.3); Creatinine Clr Calc Pharmacy 118.1 ml/min; Est GFR (African American) 118.3 ml/min; Est GFR (Non-African American) 102.1 ml/min; Magnesium 2.2 mg/dl (1.7-2.4); Potassium 3.8 mmol/L (3.5-5.1)
--- NOTE | 2023-04-04 10:49 | Surgery Progress Note ---
Date of Service April 04, 2023 Assessment & Plan (1) Small bowel obstruction: Plan: Pt here with abdominal pain and CT concerning for SBO He is feeling better, pain improved and he is passing gas and multiple BMs Pt has been on liquids without issues. will advance to low fiber If tolerates a diet, pain and nausea controlled he may be discharged to home later today from our standpoint Admission and Anticipated Discharge Date Admission Date: April 01, 2023 Supervising Physician Co-Signing Physician Notes pnt s&e, labs and imaging reviewed, agree with above. enteritis vs less likely sbo, continues to have bm's and passed flatus. Continues to feel less bloated. Tolerated full liquids. abd soft, less distended, NT. advance to low fiber, okay to d/c to home if tolerates. Subjective Patient feeling better. Pain improved. Tolerating liquids, denies nausea/vomiting. Is passing gas and BMs Physical Exam Physical Exam: awake/alert, no distress Gastrointestinal (Abdomen): Inspection/Auscultation: + abdomen distended (mild) Percussion/Palpation: + abdomen tender (very mild in the central abdomen) and abdomen soft Results & Data Vital Signs (Past 12 Hours) Vital Signs Temp Pulse Resp BP Pulse Ox O2 Del Method 04/04/23 08:00 Room Air 04/04/23 07:22 97.7 F 58 L 14 121/75 95 Room Air PG Care Time/CCT Total # of Minutes Spent Total Time Spent with Patient: Total time spent is greater than 50% in coordination of care (as documented) at patient's floor/unit and/or counseling patient: Coding Level of Care Code 70669 SUB INP/OBS CARE 03/22MIN Diagnoses Small bowel obstruction K56.609
--- NOTE | 2023-04-04 16:05 | Discharge Summary ---
Date of Service April 04, 2023 Admission HPI Per Admitting Provider Jaime Brink is a 48yo male with no significant past medical or surgical history presenting with abdominal pain, nausea/vomiting and diarrhea. Patient's symptoms began 7 days ago possibly after he ate some improperly stored chicken. He has had diffuse, generalized abdominal pain, nausea with multiple episodes of non-bloody/non-bilious vomiting as well as non-bloody diarrhea. He has had worsening abdominal pain and distention. He has had some chills but no documented fever. No chest pain, palpitations, cough or shortness of breath. No additional complaints at this time. In the ER he is afebrile, HD stable, NAD ER Course: NSS x 1L Zofran 4mg IV Morphine 4mg IV Principal Diagnosis small bowel obstruction resolving Discharge Exam NABS still some firmness to abdomen and tympany Discharge Data Allergies Allergy/AdvReac Type Severity Reaction Status Date / Time No Known Allergies Allergy Verified 04/01/23 18:29 Consultations 04/01/23 20:25 ED Decision to Admit Stat 04/01/23 20:27 Consult General Surgery Routine 04/02/23 12:44 Consult Gastroenterology Routine Ordered Studies Abdomen/Pelvis CT 04/01/23 16:[address] WITH IV CONTRAST CT DOSE: 1556.05 mGy.cm HISTORY: Acute generalized abdominal pain with nausea and vomiting worsening a bd pain, n/v, distension TECHNIQUE: Multiaxial CT images of the abdomen and pelvis were performed following the IV administration of 86 cc of Optiray, A dose lowering technique was utilized adhering to the principles of ALARA. COMPARISON STUDY: 03/29/2023 FINDINGS: Right hemidiaphragmatic elevation redemonstrated. Subsegmental bibasilar densities suggest atelectasis. No pneumatosis or pneumoperitoneum identified. Unremarkable spleen, adrenal glands. Mildly distended gallbladder. The pancreas is unremarkable. Borderline dilation of the pancreatic duct measuring 3-4 mm is unchanged. Unremarkable liver. Patency of the hepatic and portal veins. Unremarkable kidneys. No hydronephrosis. Partially decompressed bladder with wall thickening. Prostate is mildly enlarged. Unremarkable abdominal aorta and IVC. No lymphadenopathy. Trace ascites. Numerous dilated air and fluid-filled loops of small bowel redemonstrated measuring up to approximately 5.6 cm. Several loops of small bowel demonstrates circumferential wall thickening. There is transition narrowing involving a loop of small bowel within the left midabdomen on image 29 series 3 which is generally decompressed distally extending to the terminal ileum. There is mild swirling of the mesentery. Mild interloop edema. Normal appendix. No acute fracture. Tiny fat filled umbilical hernia. IMPRESSION: 1. High-grade small bowel obstruction with transition point within the left abdomen. Several loops of small bowel demonstrate wall thickening with moderate interloop edema and trace ascites. 2. No pneumoperitoneum. 3. Normal appendix. ACT 112: Negative or not required by law. The above report was generated using voice recognition software. It may contain grammatical, syntax or spelling errors. Electronically signed by: Ck Lutz M.D. 04/01/2023 6:52 PM Chest X-Ray 04/01/23 19:04 XR chest 1V portable HISTORY: Shortness of breath. COMPARISON: Abdomen and pelvis CT 04/01/2023. FINDINGS: Elevated right hemidiaphragm with right basilar linear densities consistent with subsegmental atelectasis. This remains unchanged. No pneumothorax. No pleural effusions. The heart is normal in size. There are few left basilar linear densities favoring subsegmental atelectasis. The upper lung zones are clear. No evidence for pulmonary edema. No acute fractures. IMPRESSION: Bibasilar linear densities which favor subsegmental atelectasis. Otherwise, no acute process within the chest. Electronically signed by: Johnathan Hanson M.D. 04/02/2023 7:05 AM KUB X-Ray 04/03/23 08:12 KUB CLINICAL HISTORY: Small bowel obstruction. COMPARISON STUDY: CT of the abdomen and pelvis April 01, 2023. FINDINGS: Multiple loops of moderately dilated small bowel measure up to 5.5 cm in caliber. Small bowel dilatation has improved since CT of April 01, 2023. No radiographic evidence for free air although sensitivity diminished on supine exam. IMPRESSION: Findings suggestive of a persistent, but mildly improved, small bowel obstruction. Electronically signed by: Alen Buck M.D. 04/03/2023 9:15 AM Hospital Course (1) Small bowel obstruction: 48yo male with no significant past medical history, no abdominal surgeries presenting with 7 days of nausea, vomiting, diarrhea. Now with worsening abdominal pain and distention. Found to have high grade SBO -Patient with improvement, tolerating advancement of diet still with some tympany and distention -Pain control with tylenol having bowel movements -Zofran PRN nausea Rx given - -General Surgery consultation and Gastroentereolgy bryant, surgery feels less likley sbo, will need outpatient colonoscopy with gastroenterology after discharge Mild anemia noted likely due to dilution mild hyponatremia noted likely due to intravenous fluids Code - Full Total Time Total Time Spent Total Time Spent (In Minutes): greater than 30 minutes required to create discharge Discharge Plan Discharge Items Patient Disposition: Home - Self-Care Reason For Visit: ABDOMINAL PAIN Discharge Diagnosis: small bowel obstruction, improving Activity: Per Instructions section Activity Comment: take it easy for the remainder of the week and weekend Non-emergency contact: Primary Care Provider Call non-emergency contact if: your symptoms worsen Follow-up/Referrals: Armando Sims MD [Primary Care Provider] - Diet: Low Fiber Addtl Attending Provider Instructions: please eat a low fiber diet and encourage liquid intake if you have worsened pain, vomiting or fever please return Addtl Console Attendant Provider Instructions: If you have pain use tylenol instead of ibuprofen Pending Studies at Discharge: No Stand-Alone Forms: [facility] [employer], Smoking Cessation Medications and DC Order Prescriptions: New ondansetron HCl 4 mg tablet 4 mg PO TID PRN (Reason: nausea and vomiting) Qty: 14 0RF Discontinued ibuprofen 200 mg Tablet 600 mg PO Q6H PRN (Reason: PAIN/FEVER) Discharge Orders: Discharge Order (Routine); Ordered 04/04/23 Ordered By: Pritesh Rod Admission Data Admit Date/Time: 04/01/23 20:53 Attending Provider: Pritesh Rod Admit Provider: Johnathan Ruvalcaba Primary Care Provider: Armando Sims Other Providers: Chante Wills; Pancho Zapata; Milton Hernandez Other Interventions: Discharge Summary Assessment (RN) Last Done: 04/04/23 15:54 Coding Level of Care Code 30845 INP/OBS DISCH >30 MIN Diagnoses Small bowel obstruction K56.609
== END 2023-04-04 16:20 | disposition home or self-care (01) | DRG 389 ==
LOC: ED 16:24 → SUATTDRO 20:53 → 3N 20:53 → 3E 04-03 04:44